=== PATIENT | male | born 1945 | race Caucasian/White ===

== ENCOUNTER 2023-10-13 13:31 | Outpatient (RCR) | payer MEDICARE, SELFPAY ==
[2023-10-13 13:44] LABS: Hemoglobin 14.5 g/dL (13.0-18.0)
[2023-10-13 13:45] VITALS: BP 133/86
[2023-10-13 14:05] VITALS: BP 122/62
[2023-10-13 14:15] VITALS: BP 144/72
[2023-10-13 15:35] LABS: PSA, Total - Diagnostic 0.76 ng/ml (0.0-4.0)
== END 2023-11-07 23:59 | disposition home or self-care (01) ==
LOC: OID 13:31
PROVIDERS: Family Medicine Geriatric Medicine; ATTENDING PHYSICIAN Internal Medicine Hematology & Oncology; FAMILY PHYSICIAN Family Medicine
DX: D75.1 Secondary polycythemia (principal)
CPT/HCPCS: 36415; 84153; 85014; 85018; 99195

== ENCOUNTER 2024-01-04 10:05 | Outpatient (RCR) | payer MEDICARE, SELFPAY ==
[2023-12-16 13:19] LABS: % Basophils 0.3 % (0-2); % Eosinophils 1.6 % (0-6); % Immature Granulocytes 0.1 % (0-0.5); % Lymphocytes 14.7 % (20.5-51.1); % Monocytes 8.6 % (1.7-9.3); % Neutrophils 74.7 % (42.2-75.2); Absolute Eosinophils 0.1 10^3/uL (0-0.7); Absolute Lymphocytes 1.3 10^3/uL (1.2-3.4); Absolute Monocytes 0.8 10^3/uL (0.1-0.6); Absolute Neutrophils 6.7 10^3/uL (1.4-6.5); Hematocrit 45.2 % (39.0-52.0); Hemoglobin 13.9 g/dL (13.0-18.0); Mean Corp Hgb Conc. 30.8 g/dL (33.0-37.0); Mean Corpuscular Hgb 23.1 pg (27.0-31.0); Mean Corpuscular Volume 75.1 fL (80.0-94.0); Mean Platelet Volume 9.9 fL (7.4-10.4); Platelet Count 291 10^3/uL (130-400); Red Blood Cell Count 6.02 10^6/uL (4.70-6.10); Red Cell Dist. Width 18.3 % (11.5-14.5)
[2024-01-04 10:38] LABS: % Basophils 0.3 % (0-2); % Eosinophils 0.8 % (0-6); % Immature Granulocytes 0.2 % (0-0.5); % Monocytes 7.2 % (1.7-9.3); % Neutrophils 81.5 % (42.2-75.2); Absolute Eosinophils 0.1 10^3/uL (0-0.7); Absolute Monocytes 0.8 10^3/uL (0.1-0.6); Absolute Neutrophils 8.4 10^3/uL (1.4-6.5); Hematocrit 45.5 % (39.0-52.0); Hemoglobin 13.9 g/dL (13.0-18.0); Mean Corp Hgb Conc. 30.5 g/dL (33.0-37.0); Mean Corpuscular Hgb 23.1 pg (27.0-31.0); Mean Corpuscular Volume 75.5 fL (80.0-94.0); Mean Platelet Volume 9.7 fL (7.4-10.4); Platelet Count 242 10^3/uL (130-400); Red Blood Cell Count 6.03 10^6/uL (4.70-6.10); Red Cell Dist. Width 18.4 % (11.5-14.5); White Blood Cell Count 10.4 10^3/uL (4.8-10.8)
[2024-01-04 11:00] VITALS: BP 136/76
[2024-01-04 11:38] VITALS: BP 134/69
[2024-01-04 11:40] VITALS: BP 149/83
== END 2024-01-05 09:57 | disposition home or self-care (01) ==
LOC: OID 10:05
PROVIDERS: ATTENDING PHYSICIAN Internal Medicine Hematology & Oncology; FAMILY PHYSICIAN Family Medicine
DX: D75.1 Secondary polycythemia (principal)
CPT/HCPCS: 36415; 85025; 99195

== ENCOUNTER 2024-02-29 10:16 | Outpatient (RCR) | payer MEDICARE, SELFPAY ==
[2024-02-29 10:31] LABS: % Basophils 0.3 % (0-2); % Eosinophils 3.3 % (0-6); % Immature Granulocytes 0.2 % (0-0.5); % Lymphocytes 13.1 % (20.5-51.1); % Monocytes 8.6 % (1.7-9.3); % Neutrophils 74.5 % (42.2-75.2); Absolute Eosinophils 0.3 10^3/uL (0-0.7); Absolute Lymphocytes 1.2 10^3/uL (1.2-3.4); Absolute Monocytes 0.8 10^3/uL (0.1-0.6); Absolute Neutrophils 6.6 10^3/uL (1.4-6.5); Hematocrit 47.3 % (39.0-52.0); Hemoglobin 14.4 g/dL (13.0-18.0); Mean Corp Hgb Conc. 30.4 g/dL (33.0-37.0); Mean Corpuscular Hgb 22.9 pg (27.0-31.0); Mean Corpuscular Volume 75.3 fL (80.0-94.0); Platelet Count 269 10^3/uL (130-400); Red Blood Cell Count 6.28 10^6/uL (4.70-6.10); Red Cell Dist. Width 18.8 % (11.5-14.5); White Blood Cell Count 8.9 10^3/uL (4.8-10.8)
[2024-02-29 10:35] VITALS: BP 155/87
[2024-02-29 11:00] VITALS: BP 128/79
[2024-02-29 11:05] VITALS: BP 120/73
[2024-02-29 11:28] LABS: ALT (SGPT) 17 U/L (0-50); AST (SGOT) 24 U/L (17-59); Albumin 4.4 g/dl (3.5-5.0); Alkaline Phosphatase 54 U/L (38-126); Blood Urea Nitrogen 23 mg/dl (9-20); Calcium 9.7 mg/dl (8.4-10.2); Carbon Dioxide 29 mmol/L (22-30); Chloride 103 mmol/L (98-107); Glucose 106 mg/dl (70-99); HDL Cholesterol 47 mg/dl; LDL Cholesterol, Calculated 89 mg/dl; Potassium 4.8 mmol/L (3.5-5.1); Sodium 140 mmol/L (135-145); Total Bilirubin 0.6 mg/dl (0.2-1.3); Total Cholesterol 156 mg/dl (50-199); Total Protein 6.6 g/dl (6.3-8.2); Triglyceride 100 mg/dl (10-149); Very Low Density Lipoprotein 20 mg/dl (0-30); eGFR > 60.00
[2024-02-29 11:38] LABS: Glycohemoglobin (HgbA1c) 5.8 % (4.0-5.6)
[2024-02-29 11:45] LABS: Vitamin D, 25-OH*** 47.2 ng/mL (30-80)
[2024-02-29 11:59] LABS: TSH 1.36 uIU/ml (0.47-4.68)
[2024-02-29 12:03] LABS: Ferritin 12.9 ng/ml (17.9-464.0)
== END 2024-03-01 09:45 | disposition home or self-care (01) ==
LOC: OID 10:16
PROVIDERS: ATTENDING PHYSICIAN Internal Medicine Hematology & Oncology; FAMILY PHYSICIAN Family Medicine; OTHER PHYSICIAN Internal Medicine Cardiovascular Disease
DX: D75.1 Secondary polycythemia (principal)
CPT/HCPCS: 36415; 80053; 80061; 82306; 82728; 83036; 84443; 85025; 99195

== ENCOUNTER → 2024-04-11 18:00 | Outpatient (REF) | payer MEDICARE, SELFPAY | LOC: CLAB 18:00 | PROVIDERS: ATTENDING PHYSICIAN Family Medicine | DX: C61 Malignant neoplasm of prostate (principal) | CPT/HCPCS: 84153 ==

== ENCOUNTER 2024-04-25 09:06 | Outpatient (RCR) | payer MEDICARE, SELFPAY ==
[2024-04-25 09:40] LABS: % Basophils 0.3 % (0-2); % Eosinophils 1.8 % (0-6); % Immature Granulocytes 0.1 % (0-0.5); % Lymphocytes 11.6 % (20.5-51.1); % Neutrophils 77.2 % (42.2-75.2); Absolute Eosinophils 0.2 10^3/uL (0-0.7); Absolute Monocytes 0.8 10^3/uL (0.1-0.6); Absolute Neutrophils 6.7 10^3/uL (1.4-6.5); Hematocrit 46.3 % (39.0-52.0); Hemoglobin 13.8 g/dL (13.0-18.0); Mean Corp Hgb Conc. 29.8 g/dL (33.0-37.0); Mean Corpuscular Hgb 22.7 pg (27.0-31.0); Mean Corpuscular Volume 76.2 fL (80.0-94.0); Mean Platelet Volume 9.8 fL (7.4-10.4); Platelet Count 269 10^3/uL (130-400); Red Blood Cell Count 6.08 10^6/uL (4.70-6.10); Red Cell Dist. Width 18.4 % (11.5-14.5); White Blood Cell Count 8.7 10^3/uL (4.8-10.8)
[2024-04-25 10:00] VITALS: BP 146/68
[2024-04-25 10:35] VITALS: BP 119/67
[2024-04-25 10:40] VITALS: BP 141/78
== END 2024-04-26 08:38 | disposition home or self-care (01) ==
LOC: OID 09:06
PROVIDERS: ATTENDING PHYSICIAN Internal Medicine Hematology & Oncology; FAMILY PHYSICIAN Family Medicine; OTHER PHYSICIAN Internal Medicine Cardiovascular Disease
DX: D75.1 Secondary polycythemia (principal)
CPT/HCPCS: 36415; 85025; 99195

== ENCOUNTER 2024-07-04 09:11 | Outpatient (RCR) | payer MEDICARE, SELFPAY ==
[2024-07-04 09:21] LABS: % Basophils 0.2 % (0-2); % Eosinophils 2.5 % (0-6); % Immature Granulocytes 0.2 % (0-0.5); % Lymphocytes 13.1 % (20.5-51.1); % Monocytes 7.4 % (1.7-9.3); % Neutrophils 76.6 % (42.2-75.2); Absolute Eosinophils 0.2 10^3/uL (0-0.7); Absolute Lymphocytes 1.3 10^3/uL (1.2-3.4); Absolute Monocytes 0.7 10^3/uL (0.1-0.6); Absolute Neutrophils 7.3 10^3/uL (1.4-6.5); Hematocrit 45.6 % (39.0-52.0); Hemoglobin 13.6 g/dL (13.0-18.0); Mean Corp Hgb Conc. 29.8 g/dL (33.0-37.0); Mean Corpuscular Hgb 21.7 pg (27.0-31.0); Mean Corpuscular Volume 72.7 fL (80.0-94.0); Mean Platelet Volume 9.4 fL (7.4-10.4); Platelet Count 312 10^3/uL (130-400); Red Blood Cell Count 6.27 10^6/uL (4.70-6.10); Red Cell Dist. Width 18.6 % (11.5-14.5); White Blood Cell Count 9.6 10^3/uL (4.8-10.8)
== END 2024-07-08 23:59 | disposition home or self-care (01) ==
LOC: OID 09:11
PROVIDERS: ATTENDING PHYSICIAN Internal Medicine Hematology & Oncology; FAMILY PHYSICIAN Family Medicine; OTHER PHYSICIAN Internal Medicine Cardiovascular Disease
DX: D75.1 Secondary polycythemia (principal)
CPT/HCPCS: 36415; 85025

== ENCOUNTER → 2024-07-21 11:03 | Outpatient (REF) | payer MEDICARE, SELFPAY ==
[2024-07-21 13:19] LABS: PSA, Total - Diagnostic 0.83 ng/ml (0.0-4.0)
== END ==
LOC: REG 11:03
PROVIDERS: ATTENDING PHYSICIAN Family Medicine Geriatric Medicine; FAMILY PHYSICIAN Family Medicine
DX: C61 Malignant neoplasm of prostate (principal); R97.21 Rising PSA following treatment for malignant neoplasm of prostate
CPT/HCPCS: 36415; 84153

== ENCOUNTER → 2024-08-16 06:19 | Day surgery (SDC) | payer MEDICARE, SELFPAY | LOC: GI 06:19 | PROVIDERS: ATTENDING PHYSICIAN Surgery | DX: Z12.11 Encounter for screening for malignant neoplasm of colon (principal); R19.5 Other fecal abnormalities; K64.4 Residual hemorrhoidal skin tags; K57.30 Diverticulosis of large intestine without perforation or abscess without bleeding; K64.9 Unspecified hemorrhoids; D12.8 Benign neoplasm of rectum | CPT/HCPCS: 45385; 88305 ==

== ENCOUNTER 2024-08-21 13:19 | Outpatient (RCR) | payer MEDICARE, SELFPAY ==
[2024-08-21 13:35] LABS: % Basophils 0.2 % (0-2); % Eosinophils 0.5 % (0-6); % Immature Granulocytes 0.2 % (0-0.5); % Lymphocytes 9.1 % (20.5-51.1); Absolute Eosinophils 0.1 10^3/uL (0-0.7); Absolute Lymphocytes 1.3 10^3/uL (1.2-3.4); Absolute Neutrophils 12.2 10^3/uL (1.4-6.5); Hematocrit 46.4 % (39.0-52.0); Hemoglobin 13.7 g/dL (13.0-18.0); Mean Corp Hgb Conc. 29.5 g/dL (33.0-37.0); Mean Corpuscular Hgb 21.2 pg (27.0-31.0); Mean Corpuscular Volume 71.7 fL (80.0-94.0); Mean Platelet Volume 9.3 fL (7.4-10.4); Platelet Count 341 10^3/uL (130-400); Red Blood Cell Count 6.47 10^6/uL (4.70-6.10); Red Cell Dist. Width 19.4 % (11.5-14.5); White Blood Cell Count 14.7 10^3/uL (4.8-10.8)
[2024-08-21 13:50] VITALS: BP 136/77
[2024-08-21 14:10] VITALS: BP 130/82
[2024-08-21 14:15] VITALS: BP 155/80
== END 2024-08-22 11:59 | disposition home or self-care (01) ==
LOC: OID 13:19
PROVIDERS: ATTENDING PHYSICIAN Internal Medicine Hematology & Oncology; FAMILY PHYSICIAN Family Medicine; OTHER PHYSICIAN Internal Medicine Cardiovascular Disease
DX: D75.1 Secondary polycythemia (principal)
CPT/HCPCS: 36415; 85025; 99195

== ENCOUNTER 2024-10-19 09:39 | Outpatient (RCR) | payer MEDICARE, SELFPAY ==
[2024-10-19 10:07] LABS: % Basophils 0.4 % (0-2); % Immature Granulocytes 0.2 % (0-0.5); % Lymphocytes 8.9 % (20.5-51.1); % Monocytes 7.3 % (1.7-9.3); % Neutrophils 81.2 % (42.2-75.2); Absolute Eosinophils 0.2 10^3/uL (0-0.7); Absolute Lymphocytes 0.9 10^3/uL (1.2-3.4); Absolute Monocytes 0.7 10^3/uL (0.1-0.6); Absolute Neutrophils 7.8 10^3/uL (1.4-6.5); Hematocrit 46.6 % (39.0-52.0); Hemoglobin 13.7 g/dL (13.0-18.0); Mean Corp Hgb Conc. 29.4 g/dL (33.0-37.0); Mean Corpuscular Volume 71.6 fL (80.0-94.0); Mean Platelet Volume 9.9 fL (7.4-10.4); Platelet Count 323 10^3/uL (130-400); Red Blood Cell Count 6.51 10^6/uL (4.70-6.10); White Blood Cell Count 9.6 10^3/uL (4.8-10.8)
[2024-10-19 10:15] VITALS: BP 141/79
[2024-10-19 10:30] VITALS: BP 119/62
[2024-10-19 10:40] VITALS: BP 143/79
== END 2024-10-20 07:58 | disposition home or self-care (01) ==
LOC: OID 09:39
PROVIDERS: ATTENDING PHYSICIAN Internal Medicine Hematology & Oncology; FAMILY PHYSICIAN Family Medicine; OTHER PHYSICIAN Internal Medicine Cardiovascular Disease
DX: D75.1 Secondary polycythemia (principal)
CPT/HCPCS: 36415; 85025; 99195

== ENCOUNTER → 2024-10-23 06:56 | Outpatient (REF) | payer MEDICARE, SELFPAY | LOC: RCS 06:56 | PROVIDERS: ATTENDING PHYSICIAN Internal Medicine Cardiovascular Disease; FAMILY PHYSICIAN Family Medicine | DX: Z95.1 Presence of aortocoronary bypass graft (principal) | CPT/HCPCS: 93306 ==

== ENCOUNTER 2024-11-27 10:20 | Outpatient (RCR) | payer MEDICARE, SELFPAY ==
[2024-11-27 10:48] LABS: % Basophils 0.4 % (0-2); % Immature Granulocytes 0.2 % (0-0.5); % Lymphocytes 9.3 % (20.5-51.1); % Monocytes 8.5 % (1.7-9.3); % Neutrophils 80.6 % (42.2-75.2); Absolute Basophils 0.1 10^3/uL (0-0.2); Absolute Eosinophils 0.1 10^3/uL (0-0.7); Absolute Lymphocytes 1.1 10^3/uL (1.2-3.4); Absolute Neutrophils 9.6 10^3/uL (1.4-6.5); Hematocrit 42.5 % (39.0-52.0); Hemoglobin 12.5 g/dL (13.0-18.0); Mean Corp Hgb Conc. 29.4 g/dL (33.0-37.0); Mean Corpuscular Hgb 20.8 pg (27.0-31.0); Mean Corpuscular Volume 70.7 fL (80.0-94.0); Mean Platelet Volume 9.5 fL (7.4-10.4); Platelet Count 323 10^3/uL (130-400); Red Blood Cell Count 6.01 10^6/uL (4.70-6.10); Red Cell Dist. Width 18.3 % (11.5-14.5); White Blood Cell Count 11.9 10^3/uL (4.8-10.8)
== END 2024-12-06 23:59 | disposition home or self-care (01) ==
LOC: OID 10:20
PROVIDERS: ATTENDING PHYSICIAN Internal Medicine Hematology & Oncology; FAMILY PHYSICIAN Family Medicine; OTHER PHYSICIAN Internal Medicine Cardiovascular Disease
DX: D75.1 Secondary polycythemia (principal)
CPT/HCPCS: 36415; 85025

== ENCOUNTER 2025-01-08 10:24 | Outpatient (RCR) | payer MEDICARE, SELFPAY ==
[2025-01-08 10:44] LABS: % Basophils 0.5 % (0-2); % Eosinophils 2.3 % (0-6); % Immature Granulocytes 0.3 % (0-0.5); % Lymphocytes 8.3 % (20.5-51.1); % Monocytes 8.2 % (1.7-9.3); % Neutrophils 80.4 % (42.2-75.2); Absolute Basophils 0.1 10^3/uL (0-0.2); Absolute Eosinophils 0.3 10^3/uL (0-0.7); Absolute Lymphocytes 0.9 10^3/uL (1.2-3.4); Absolute Monocytes 0.9 10^3/uL (0.1-0.6); Absolute Neutrophils 8.6 10^3/uL (1.4-6.5); Hematocrit 46.2 % (39.0-52.0); Hemoglobin 13.5 g/dL (13.0-18.0); Mean Corp Hgb Conc. 29.2 g/dL (33.0-37.0); Mean Corpuscular Hgb 20.7 pg (27.0-31.0); Mean Corpuscular Volume 70.9 fL (80.0-94.0); Mean Platelet Volume 9.2 fL (7.4-10.4); Platelet Count 319 10^3/uL (130-400); Red Blood Cell Count 6.52 10^6/uL (4.70-6.10); Red Cell Dist. Width 20.3 % (11.5-14.5); White Blood Cell Count 10.7 10^3/uL (4.8-10.8)
[2025-01-08 10:55] VITALS: BP 156/72
[2025-01-08 11:10] VITALS: BP 141/69
[2025-01-08 11:15] VITALS: BP 136/77
[2025-01-08 12:36] LABS: PSA, Total - Diagnostic 1.12 ng/ml (0.0-4.0)
== END 2025-02-05 23:59 | disposition home or self-care (01) ==
LOC: OID 10:24
PROVIDERS: ATTENDING PHYSICIAN Internal Medicine Hematology & Oncology; FAMILY PHYSICIAN Family Medicine; OTHER PHYSICIAN Internal Medicine Cardiovascular Disease; REFERRING PHYSICIAN Family Medicine Geriatric Medicine
DX: D75.1 Secondary polycythemia (principal)
CPT/HCPCS: 36415; 84153; 85025; 99195

== ENCOUNTER → 2025-02-20 07:58 | Outpatient (REF) | payer MEDICARE, SELFPAY | LOC: RCS 07:58 | PROVIDERS: ATTENDING PHYSICIAN Internal Medicine Cardiovascular Disease; FAMILY PHYSICIAN Family Medicine | DX: Z95.1 Presence of aortocoronary bypass graft (principal); R06.09 Other forms of dyspnea | CPT/HCPCS: 78452; 93017; A9500 ==

== ENCOUNTER 2025-03-05 12:49 | Outpatient (RCR) | payer MEDICARE, SELFPAY ==
[2025-03-05 13:01] LABS: Hematocrit 44.1 % (39.0-52.0); Hemoglobin 13.0 g/dL (13.0-18.0); Mean Corp Hgb Conc. 29.5 g/dL (33.0-37.0); Mean Corpuscular Volume 70.6 fL (80.0-94.0); Platelet Count 385 10^3/uL (130-400); Red Cell Dist. Width 19.3 % (11.5-14.5)
== END 2025-03-08 23:59 | disposition home or self-care (01) ==
LOC: OID 12:49
PROVIDERS: ATTENDING PHYSICIAN Internal Medicine Hematology & Oncology; FAMILY PHYSICIAN Family Medicine; OTHER PHYSICIAN Internal Medicine Cardiovascular Disease; REFERRING PHYSICIAN Family Medicine Geriatric Medicine
DX: D75.1 Secondary polycythemia (principal); C61 Malignant neoplasm of prostate
CPT/HCPCS: 36415; 85025

== ENCOUNTER 2025-04-11 09:38 | Outpatient (RCR) | payer MEDICARE, SELFPAY ==
[2025-04-11 09:51] LABS: Hematocrit 43.2 % (39.0-52.0); Hemoglobin 12.7 g/dL (13.0-18.0); Mean Corp Hgb Conc. 29.4 g/dL (33.0-37.0); Mean Corpuscular Volume 70.9 fL (80.0-94.0); Platelet Count 306 10^3/uL (130-400); Red Cell Dist. Width 19.4 % (11.5-14.5)
== END 2025-05-08 23:59 | disposition home or self-care (01) ==
LOC: OID 09:38
PROVIDERS: ATTENDING PHYSICIAN Internal Medicine Hematology & Oncology; FAMILY PHYSICIAN Family Medicine; OTHER PHYSICIAN Internal Medicine Cardiovascular Disease; REFERRING PHYSICIAN Family Medicine Geriatric Medicine
DX: D75.1 Secondary polycythemia (principal); C61 Malignant neoplasm of prostate
CPT/HCPCS: 36415; 85025

== ENCOUNTER → 2025-04-17 16:05 | Outpatient (REF) | payer MEDICARE, SELFPAY ==
[2025-04-17 18:17] LABS: ALT (SGPT) 14 U/L (0-50); AST (SGOT) 24 U/L (17-59); Albumin 4.4 g/dl (3.5-5.0); Alkaline Phosphatase 55 U/L (38-126); Blood Urea Nitrogen 18 mg/dl (9-20); Calcium 9.6 mg/dl (8.4-10.2); Carbon Dioxide 29 mmol/L (22-30); Chloride 102 mmol/L (98-107); Glucose 92 mg/dl (70-99); HDL Cholesterol 44 mg/dl; LDL Cholesterol, Calculated 155 mg/dl; Potassium 4.7 mmol/L (3.5-5.1); Sodium 136 mmol/L (135-145); Total Protein 6.8 g/dl (6.3-8.2); Very Low Density Lipoprotein 16 mg/dl (0-30); eGFR > 60.00
[2025-04-17 18:19] LABS: C-Reactive Protein 6.00 mg/L (0.0-10.00)
[2025-04-17 18:49] LABS: TSH 1.34 uIU/ml (0.47-4.68)
[2025-04-18 10:12] LABS: Glycohemoglobin (HgbA1c) 5.8 % (4.0-5.6)
== END ==
LOC: CLAB 16:05
PROVIDERS: ATTENDING PHYSICIAN Family Medicine
DX: C61 Malignant neoplasm of prostate (principal); I25.10 Atherosclerotic heart disease of native coronary artery without angina pectoris; R73.03 Prediabetes; D75.1 Secondary polycythemia; I10 Essential (primary) hypertension; Z95.1 Presence of aortocoronary bypass graft; E78.2 Mixed hyperlipidemia; E66.09 Other obesity due to excess calories; Z76.89 Persons encountering health services in other specified circumstances; G47.33 Obstructive sleep apnea (adult) (pediatric); Z68.34 Body mass index [BMI] 34.0-34.9, adult; Z78.9 Other specified health status; R52 Pain, unspecified
CPT/HCPCS: 80053; 80061; 83036; 84443; 85652; 86140

== ENCOUNTER → 2025-04-19 10:19 | Outpatient (REF) | payer MEDICARE, SELFPAY | LOC: RAD 10:19 | PROVIDERS: ATTENDING PHYSICIAN Family Medicine | DX: R09.89 Other specified symptoms and signs involving the circulatory and respiratory systems (principal) | CPT/HCPCS: 71046 ==

== ENCOUNTER 2025-05-17 10:18 | Outpatient (RCR) | payer MEDICARE, SELFPAY ==
[2025-05-17 10:26] LABS: Hematocrit 46.5 % (39.0-52.0); Hemoglobin 13.5 g/dL (13.0-18.0); Mean Corp Hgb Conc. 29.0 g/dL (33.0-37.0); Mean Corpuscular Volume 72.0 fL (80.0-94.0); Platelet Count 331 10^3/uL (130-400); Red Cell Dist. Width 20.0 % (11.5-14.5)
[2025-05-17 10:50] VITALS: BP 146/81
[2025-05-17 11:25] VITALS: BP 130/65
[2025-05-17 11:30] VITALS: BP 133/62
== END 2025-06-08 23:59 | disposition home or self-care (01) ==
LOC: OID 10:18
PROVIDERS: ATTENDING PHYSICIAN Internal Medicine Hematology & Oncology; FAMILY PHYSICIAN Family Medicine; OTHER PHYSICIAN Internal Medicine Cardiovascular Disease; REFERRING PHYSICIAN Family Medicine Geriatric Medicine
DX: D75.1 Secondary polycythemia (principal); C61 Malignant neoplasm of prostate
CPT/HCPCS: 36415; 85025; 99195

== ENCOUNTER 2025-06-28 10:18 | Outpatient (RCR) | payer MEDICARE, SELFPAY ==
[2025-06-28 10:36] LABS: Hematocrit 45.0 % (39.0-52.0); Hemoglobin 13.2 g/dL (13.0-18.0); Mean Corp Hgb Conc. 29.3 g/dL (33.0-37.0); Mean Corpuscular Volume 70.5 fL (80.0-94.0); Platelet Count 366 10^3/uL (130-400); Red Cell Dist. Width 19.3 % (11.5-14.5)
== END 2025-07-08 23:59 | disposition home or self-care (01) ==
LOC: OID 10:18
PROVIDERS: ATTENDING PHYSICIAN Internal Medicine Hematology & Oncology; FAMILY PHYSICIAN Family Medicine; OTHER PHYSICIAN Internal Medicine Cardiovascular Disease; REFERRING PHYSICIAN Family Medicine Geriatric Medicine
DX: D75.1 Secondary polycythemia (principal); C61 Malignant neoplasm of prostate
CPT/HCPCS: 36415; 85025

== ENCOUNTER → 2025-07-10 09:37 | Outpatient (REF) | payer MEDICARE, SELFPAY ==
[2025-07-10 10:47] LABS: HDL Cholesterol 45 mg/dl; LDL Cholesterol, Calculated 160 mg/dl; Very Low Density Lipoprotein 17 mg/dl (0-30)
[2025-07-10 11:22] LABS: PSA, Total - Diagnostic 0.96 ng/ml (0.0-4.0)
== END ==
LOC: REG 09:37
PROVIDERS: ATTENDING PHYSICIAN Family Medicine Geriatric Medicine; FAMILY PHYSICIAN Family Medicine; REFERRING PHYSICIAN Internal Medicine Cardiovascular Disease
DX: Z12.5 Encounter for screening for malignant neoplasm of prostate (principal); Z95.1 Presence of aortocoronary bypass graft; R06.09 Other forms of dyspnea; I25.118 Atherosclerotic heart disease of native coronary artery with other forms of angina pectoris; C61 Malignant neoplasm of prostate
CPT/HCPCS: 36415; 80061; 84153

== ENCOUNTER 2025-07-26 10:25 | Outpatient (RCR) | payer MEDICARE, SELFPAY ==
[2025-07-26 10:38] LABS: Hematocrit 47.7 % (39.0-52.0); Hemoglobin 13.5 g/dL (13.0-18.0); Mean Corp Hgb Conc. 28.3 g/dL (33.0-37.0); Mean Corpuscular Volume 72.2 fL (80.0-94.0); Platelet Count 349 10^3/uL (130-400); Red Cell Dist. Width 19.7 % (11.5-14.5)
[2025-07-26 10:50] VITALS: BP 140/82
[2025-07-26 11:25] VITALS: BP 132/60
[2025-07-26 11:30] VITALS: BP 111/65
== END 2025-07-27 09:58 | disposition home or self-care (01) ==
LOC: OID 10:25
PROVIDERS: ATTENDING PHYSICIAN Internal Medicine Hematology & Oncology; FAMILY PHYSICIAN Family Medicine; OTHER PHYSICIAN Internal Medicine Cardiovascular Disease; REFERRING PHYSICIAN Family Medicine Geriatric Medicine
DX: D75.1 Secondary polycythemia (principal); C61 Malignant neoplasm of prostate
CPT/HCPCS: 36415; 85025; 99195